=== PATIENT | female | born 2000 | race African-American/Black ===

== ENCOUNTER 2018-08-11 11:04 | Emergency (ER) | payer MEDICAID, OTHER ==
[~2018-08-11] VITALS: Ht 165.1 cm; Wt 79.4 kg
[~2018-08-11 11:04] MED LIST: AUGMENTIN 875-1 EAC1 ORAL; BACTRIM DS TAB1 EAC1 ORAL; IBUPROFEN600 MG ORAL; NEXAFED30 MG ORAL; PROMETHAZINE-D118 ML ORAL
[2018-08-11] MEDS ORDERED: LITHIUM CARBON300 MG ORAL (11:13)
[2018-08-11 11:20] VITALS: BP 127/86
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
[2018-08-11] MEDS: Cyclobenzaprine 10mg Tab ORAL ONE (11:57)
[2018-08-11] MEDS ORDERED: IBUPROFEN800 MG ORAL (11:57)
[2018-08-11] MEDS ORDERED: CYCLOBENZAPRINE10 MG ORAL (11:57)
[2018-08-11] MEDS ORDERED: LIDODERM700 M1 TOPIC (11:57)
[2018-08-11 11:59] VITALS: BP 127/86
== END 2018-08-11 12:00 | disposition home or self-care (01) ==
LOC: EMR 11:25
DX: S13.9XXA Sprain of joints and ligaments of unspecified parts of neck, initial encounter (principal); W22.8XXA Striking against or struck by other objects, initial encounter; Y92.811 Bus as the place of occurrence of the external cause; M62.838 Other muscle spasm
CPT/HCPCS: 99282